=== PATIENT | female | born 1940 | race Caucasian/White ===

== ENCOUNTER 2020-02-25 07:25 | Day surgery (SDC) | payer OTHER ==
[2020-02-25] MEDS: Ringers Lactate 1,000 ML IV ONE ×2 (08:00→08:30)
[2020-02-25] MEDS ORDERED: MIDAZOLAM HCL 2 MG/2 ML INJ ONE (08:09)
[2020-02-25] MEDS ORDERED: LIDOCAINE 2% MPF 5 ML VIAL ONE (08:09)
[2020-02-25] MEDS ORDERED: FENTANYL CITR 100 MCG/2 ML ONE (08:09)
[2020-02-25] MEDS ORDERED: propofoL 200 MG/20 ML VIAL IV ONE (08:09)
[2020-02-25] MEDS ORDERED: LIDOCAINE 1% MPF 30 ML VIAL ONE (08:26)
[2020-02-25] MEDS ORDERED: EPHEDRINE SULF 50 MG/ML VIAL ONE (09:00)
--- NOTE | 2020-02-25 10:00 | P.OP ---
Preoperative diagnosis: Vasculitis Postoperative diagnosis: Vasculitis Primary procedure: RIGHT Temporal Artery Biopsy Anesthesia: GETA + Local Estimated blood loss: <2cc Specimen: Temporal Artery Findings: Oblique Course of Temporal Artery Complications: None Transferred to: Recovery Room Condition: Good
[2020-02-25] MEDS ORDERED: KETOROLAC 30 MG/ML INJ ONE (10:09)
[2020-02-25] MEDS: MORPHINE 4 MG/ML SYR ONE ×2 (10:25→10:30)
[2020-02-25] MEDS ORDERED: ONDANSETRON 4 MG/2 ML VIAL ONE (10:28)
--- NOTE | 2020-02-25 10:46 | OP ---
Date of Procedure: 02/25/2020 Surgeon: Yovany Mon MD, Preoperative Diagnosis: Possible vasculitis and ophthalmic changes. Postoperative Diagnosis: Possible vasculitis and ophthalmic changes. Procedure Performed: Right temporal artery biopsy. Anesthesia: General endotracheal plus local with 0.5% Marcaine without epinephrine. Estimated Blood Loss: Less than 2 mL. Specimen: Temporal artery. Findings: Oblique course of temporal artery. Complications: None. Disposition: Transferred to the recovery room in good condition. Procedure In Detail: After informed was obtained, patient was brought to the operating room, prepped and draped in the usual sterile fashion. After adequate anesthesia achieved using Doppler localizat ion, the temporal artery on the right temporoparietal region was identified. Skin marking was perfor med. The area was appropriately anesthetized with 0.5% Marcaine without epinephrine and a 15 blade w as used to dissect down through skin and subcutaneous tissue. Dissection continued down through the temporoparietal fascia using Doppler guidance to identify the temporal artery. It had a somewhat obl ique course with a branch diving deep into the deeper layers. Dissection continued down circumferent ially to expose approximately 3 cm of the temporal artery. Both proximal and distal control were obt ained at this point and tied off with 3-0 silk sutures and the specimen was cut. However, there was a slight retraction to it and as such an additional margin was taken of proximal temporal artery and this was sent off for pathologic examination. Good hemostasis was achieved, there was minimal bleedi ng from the small superficial branches including the deep branch, which had some minimal bleeding and was dissected down to achieve control with simple grasp and electrocautery. At this point, the area was irrigated copiously multiple times until completely clear. The temporoparietal fascia was reapp roximated using an interrupted 4-0 Vicryl suture and the deep dermal layer was then reapproximated us ing an additional 4-0 Vicryl suture. Then the skin was closed with a 4-0 Monocryl in a running fashi on. Dermabond placed over top. The patient tolerated the procedure well without evidence of complic ation, transferred to PACU in good condition. All counts were correct at the end of the case. LURDES/SHANIQUAL Voice ID: [id number] Report ID: [id number]
[2020-02-25] MEDS ORDERED: HYDROCODONE/APAP 5/325 MG TAB ONE (10:58)
[2020-02-25 11:58] VITALS: TEMP 96.8; O2SAT 95
[2020-02-25 11:59] VITALS: BP 142/54
== END 2020-02-25 11:45 | disposition home or self-care (01) ==
LOC: OR 07:25
PROVIDERS: ATTEND Surgery
PROC: 03BS0ZX Excision of Right Temporal Artery, Open Approach, Diagnostic (ICD-10-PCS; principal; 2020-02-25 08:30)
DX: H53.9 Unspecified visual disturbance (principal); I10 Essential (primary) hypertension; J45.909 Unspecified asthma, uncomplicated; R01.1 Cardiac murmur, unspecified; M10.9 Gout, unspecified; E66.9 Obesity, unspecified; Z68.37 Body mass index [BMI] 37.0-37.9, adult; F41.9 Anxiety disorder, unspecified; F32.9 Major depressive disorder, single episode, unspecified; Z88.3 Allergy status to other anti-infective agents; Z88.8 Allergy status to other drugs, medicaments and biological substances; Z88.6 Allergy status to analgesic agent; Z88.0 Allergy status to penicillin; Z85.3 Personal history of malignant neoplasm of breast; Z90.12 Acquired absence of left breast and nipple; Z86.73 Personal history of transient ischemic attack (TIA), and cerebral infarction without residual deficits; Z82.49 Family history of ischemic heart disease and other diseases of the circulatory system
CPT/HCPCS: 88305; 37609; J2704; J2250; J3010; J7120; J2405

== ENCOUNTER 2022-06-23 08:23 | Day surgery (SDC) | payer OTHER ==
[2022-06-23] MEDS ORDERED: Ringers Lactate 1,000 ML IV ONE (09:03)
[2022-06-23 09:27] VITALS: O2SAT 100
[2022-06-23] MEDS ORDERED: LIDOCAINE 1% MPF 2 ML AMPULE ONE (11:51)
[2022-06-23] MEDS ORDERED: propofoL 200 MG/20 ML VIAL IV ONE (11:51)
--- NOTE | 2022-06-23 12:49 | ENDO RPT ---
[address], [address] EGD PROCEDURE REPORT EXAM DATE: 06/23/2022 PATIENT NAME: Shannan Valenzuela MR#: [id number] BIRTHDATE: 1940 ATTENDING: Yovany Mon DR STATUS: outpatient INDUSTRIAL ELECTRICAL TECHNICIAN: Chantal Stephens RN and Ernesto Henson [facility] INDICATIONS: The patient is a 82 yr old Female here for an EGD due to anemia and Black stool PROCEDURE PERFORMED: EGD with biopsy for H. pylori MEDICATIONS: Per Anesthesia. TOPICAL ANESTHETIC: none CONSENT: The patient understands the risks and benefits of the procedure and understands that these risks include, but are not limited to: sedation, allergic reaction, infection, perforation and/or bleeding. Alternative means of evaluation and treatment include, among others: physical exam, x-rays, and/or surgical intervention. The patient elects to proceed with this endoscopic procedure. DESCRIPTION OF PROCEDURE: During intra-op preparation period all mechanical medical equipment was checked for proper function. Hand hygiene and appropriate measures for infection prevention was taken. Procedure, possible complications, and alternatives including but not limited to the possibility of bleeding, perforation, tear, infection, sepsis, need for surgery, need for blood transfusion, and anesthesia related complications were explained to the patient. After the risks, benefits and alternatives of the procedure were thoroughly explained, Informed consent was verified, confirmed and timeout was successfully executed by the treatment team. The patient was placed in the left lateral position. The patient was anesthetized with topical anesthesia. Through the anesthetized oropharyngeal area, the scope was passed without any difficulty. The Pentax EG-[id number] ([id number]) endoscope was introduced through the mouth and advanced to the second portion of the duodenum. Retroflexed views revealed a small hiatal hernia. The gastroscope was then slowly withdrawn and removed. Severe gastritis was found in the fundus. A biopsy of the GEJ was obtained to rule out Roger's. A biopsy for H. pylori was taken. With standard forceps, a biopsy was obtained and sent to pathology. Severe gastritis was found in the body and the antrum of the stomach. A biopsy of the GEJ was obtained to rule out Roger's. A biopsy for H. pylori was taken. With standard forceps, a biopsy was obtained and sent to pathology. A small hiatal hernia was found in the gastroesophageal junction. ADVERSE EVENTS: There were no complications. IMPRESSIONS: 1. Severe gastritis was found in the fundus 2. Severe gastritis was found in the body and the antrum of the stomach 3. A small hiatal hernia was found in the gastroesophageal junction RECOMMENDATIONS: 1. acid suppression therapy 2. anti-reflux regimen 3. await biopsy results 4. avoid NSAIDS 5. follow-up of helicobacter pylori status, treat if indicated REPEAT EXAM: Yovany Mon DR eSigned: Yovany Mon DR 06/23/2022 12:49 PM cc: CPT CODES: ICD9 CODES: PATIENT NAME: Shannan Valenzuela MR#: [id number]
--- NOTE | 2022-06-23 12:51 | ENDO RPT ---
[address], [address] COLONOSCOPY PROCEDURE REPORT EXAM DATE: 06/23/2022 PATIENT NAME: Shannan Valenzuela MR #: [id number] BIRTHDATE: 1940 ATTENDING: Yovany Mon DR STATUS: outpatient FRONT COUNTER ATTENDANT: Ernesto Spencer and Chantal Stephens RN INDICATIONS: The patient is a 82 yr old Female here for a colonoscopy due to anemia and dark tarry stool PROCEDURE PERFORMED: Screening Colonoscopy and Colonoscopy MEDICATIONS: Per Anesthesia. ESTIMATED BLOOD LOSS: None CONSENT: The patient understands the risks and benefits of the procedure and understands that these risks include, but are not limited to: sedation, allergic reaction, infection, perforation and/or bleeding. Alternative means of evaluation and treatment include, among others: physical exam, x-rays, and/or surgical intervention. The patient elects to proceed with this endoscopic procedure. DESCRIPTION OF PROCEDURE: During intra-op preparation period all mechanical medical equipment was checked for proper function. Hand hygiene and appropriate measures for infection prevention was taken. Procedure, possible complications, alternatives including, but not limited to possibility of bleeding, perforation, tear, infection, sepsis, need for surgery, need for blood transfusion, were explained to the patient. After the risks, benefits and alternatives of the procedure were thoroughly explained, Informed consent was verified, confirmed and timeout was successfully executed by the treatment team. The patient was placed in the left lateral position. A digital rectal exam was performed and revealed internal hemorrhoids. After appropriate level of anesthesia, the scope was passed. The [id number] ([id number]) endoscope was introduced through the anus and advanced to the cecum, which was identified by both the appendix and ileocecal valve. The quality of the prep was good. The instrument was then slowly withdrawn as the colon was fully examined. Scope withdrawal time was 10 minutes. COLON FINDINGS: There was moderate diverticulosis noted throughout the entire examined colon and in the sigmoid colon with associated colonic spasm and muscular hypertrophy. No bleeding was noted from the diverticulosis. Retroflexed views revealed no abnormalities. The scope was then completely withdrawn from the patient and the procedure terminated. ADVERSE EVENTS: There were no complications. IMPRESSIONS: There was moderate diverticulosis noted throughout the entire examined colon and in the sigmoid colon RECOMMENDATIONS: 1. avoid NSAIDS for 2 weeks 2. follow-up: office 2 week(s) 3. Monitor for any evidence of rectal bleeding. 4. hemorrhoidal hygiene 5. increase dietary water 6. low fiber / diverticular diet RECALL: Return in 5 year(s) for Colonoscopy. Yovany Mon DR eSigned: Yovany Mon DR 06/23/2022 12:51 PM cc: CPT CODES: ICD9 CODES: PATIENT NAME: Shannan Valenzuela MR#: [id number]
[2022-06-23 13:44] VITALS: TEMP 97.6
[2022-06-23 13:47] VITALS: BP 108/72
== END 2022-06-23 13:30 | disposition home or self-care (01) ==
LOC: DS 08:23
PROVIDERS: ATTEND Surgery
PROC: 0DB68ZX Excision of Stomach, Via Natural or Artificial Opening Endoscopic, Diagnostic (ICD-10-PCS; 2022-06-23)
PROC: 0DJD8ZZ Inspection of Lower Intestinal Tract, Via Natural or Artificial Opening Endoscopic (ICD-10-PCS; principal; 2022-06-23 11:00)
PROC: 0DB98ZX Excision of Duodenum, Via Natural or Artificial Opening Endoscopic, Diagnostic (ICD-10-PCS; 2022-06-23 11:00)
DX: A04.8 Other specified bacterial intestinal infections (principal); K92.1 Melena; G45.9 Transient cerebral ischemic attack, unspecified; Z86.73 Personal history of transient ischemic attack (TIA), and cerebral infarction without residual deficits; D64.9 Anemia, unspecified; K57.30 Diverticulosis of large intestine without perforation or abscess without bleeding; K44.9 Diaphragmatic hernia without obstruction or gangrene; K29.50 Unspecified chronic gastritis without bleeding
CPT/HCPCS: 88312; 88305; 45378; 43239; J2704; J7120

== ENCOUNTER 2024-07-11 07:22 | Inpatient (IN) | payer OTHER ==
[2024-07-11 12:22] VITALS: BMI 34.6
[2024-07-11] MEDS ORDERED: ZOLPIDEM TARTRATE 5 MG TABLET PO PRN (12:48)
[2024-07-11] MEDS ORDERED: ACETAMINOPHEN 500 MG TAB PO PRN (13:07)
[2024-07-11] MEDS ORDERED: IPRATROPIUM BROM 0.5MG/2.5ML NEB PRN ×2 (13:08→15:54)
[2024-07-11] MEDS ORDERED: ALBUTEROL 2.5 MG/3 ML NEB SOL NEB PRN ×2 (13:11→15:54)
[2024-07-11] MEDS ORDERED: ONDANSETRON 4 MG (ODT) TAB PO PRN (13:13)
[2024-07-11] MEDS ORDERED: MAGNES/ALUMIN/SIMET 30ML UCUP PO PRN (13:14)
[2024-07-11] MEDS ORDERED: MELATONIN 3 MG TABLET PO PRN (13:27)
[2024-07-11] MEDS ORDERED: ALBUTEROL 2.5 MG/3 ML NEB SOL NEB SCH (15:00)
[2024-07-11] MEDS ORDERED: NA CHLORIDE 0.9% 250 ML ONE (19:04)
[2024-07-11] MEDS: Meropenem 1,000 MG in NA CHLORIDE 0.9% 100 ML IV SCH (19:06)
[2024-07-11] MEDS ORDERED: APIXABAN 5 MG TABLET PO SCH (20:00)
[2024-07-11] MEDS: DOCUSATE NA 100 MG CAP PO SCH (20:19)
[2024-07-11] MEDS: FLECAINIDE 100 MG TAB PO SCH (20:19)
[2024-07-11] MEDS: APIXABAN 2.5 MG TABLET PO SCH (20:19)
[2024-07-11] MEDS: ATORVASTATIN 20 MG TAB PO SCH (20:31)
--- NOTE | 2024-07-11 21:08 | HP ---
Date of Admission: 07/11/2024 Time Of Service: 1 p.m. Chief Complaint: "I was weak, I needed to get stronger and had problems with breathing." History Of Present Illness: Ms. Valenzuela is an 84-year-old patient with hypertension, dyslipidemia, sta ge 4 kidney disease, atrial fibrillation, who presents to [facility] on 07/08 with urinary freq uency, swelling of her feet, decreased strength in the lower extremities over a week, and some shortn ess of breath. Her workup showed shortness of breath on exertion and she had acute on chronic renal failure, elevated troponins, and elevated BNP. Cardiology Service diagnosed with new onset CHF. How ever, these chest x-ray findings were negative. She did receive IV Lasix 20 mg daily monitoring with 1.5 L fluid restriction and Eliquis 2.5 mg twice daily for DVT prophylaxis. She did have urinary tr act infection and received Rocephin which is ongoing. Echocardiogram showing atrial fibrillation and [id number] myocardial infarction. In addition, she was diagnosed with diastolic CHF exacerbatio n and was evaluated by the Therapy Service for inpatient consideration. She also does have the young est son who is involved with her and helps her with showering and mobilization and activities of mik y living. The Therapy Service found that she required moderate to maximal assistance for sit to darwin d, maximum assistance to take few steps, and had some bilateral foot pain more on the right than on t he left with likely due to gout exacerbation, for which in the past she had been apparently on allopu rinol. She did have 2 falls at home in the last 6 months while ambulating with a cane. Due to her c ondition, which is related to CHF exacerbation, urinary tract infection, pain on the right leg, debil ity, she is now found to be appropriate candidate for aggressive inpatient rehabilitation for her to be able to return to her prior level of functioning and reduce her risk of rehospitalization. Admiss celsa to a lower level facility such as a residential may not necessarily result in her improving, but potentially worsening and reducing the risk of her going home and returning to independent living . Past Medical History: Left breast cancer, on oral chemotherapy, letrozole. 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 Allergies: METRONIDAZOLE AND PENICILLIN. X-ray/imaging: Chest x-ray on 07/08 shows no acute cardiopulmonary processes. She was evaluated and treated by the Renal Service prior to coming to the inpatient unit and the Renal Service determined that she has stabilized renal function and would continue monitoring, would taper down a weaning cour se of steroids which she was sent on and that is being done and follow the diuresis and daily weights and fluid management. Medications: Extra-strength Tylenol 500 mg every 4 hours as needed, Maalox 30 mg every 6 hours as ne eded, albuterol nebulizer 2.5 mg every 4 hours as needed, allopurinol 100 mg daily, Eliquis 2.5 mg tw ice daily, aspirin 81 mg daily, Lipitor 20 mg at bedtime, Colace 100 mg twice daily, flecainide 50 mg twice daily, Lasix 20 mg daily, ipratropium nebulizer 0.5 mg every 4 hours as needed, letrozole 2.5 mg daily, melatonin 3 mg at bedtime, meropenem 1 g every 12 hours for ESBL UTI, Lopressor 25 mg daily , Zofran 4 mg every 4 hours as needed, and she has a tapering course of prednisone from 40 mg daily d own to 30, 20, 10, and stopping. She also has Ultram 50 mg every 6 hours as needed. Family History: Noncontributory. Review of Systems: She reports pain in the right toe more than the left from gout and some mild fatigue, some difficulty with mild myalgias, arthralgias. Although she does have some issues of bowel movement, difficulty a nd mild issues of sleep, no other significant positives on the review of systems again. Family History: Noncontributory. Social History: No alcohol, tobacco, or drug use. She does live at home with her younger son whom s he says very helpful and will take care of her after she is discharged. Current Level Of Functioning: Supervision for eating, oral hygiene. Moderate assistance for toileti ng. Maximal assistance for showering. Moderate assistance for upper body dressing, maximal assistan ce for lower body dressing and donning and doffing footwear. For rolling eutc-lp-juhie and sit to ly ing and lying to sitting on the side of the bed, moderate assistance required. For sit to stand, max imum assistance. For transfer from bed to chair to toilet, moderate assistance required. For ambula tion 20 feet with a rolling walker, moderate assistance required. Physical Examination: Vital Signs: Blood pressure is 112/58, pulse 80, respiratory rate 18, temperature 97.6, oxygen satur ation 97%. General: Ms. Valenzuela is sitting in a chair in the gym doing therapy. HEENT: She is normocephalic, atraumatic. Sclerae anicteric. Oropharynx pink, moist. Neck: Supple. Chest: Clear. Heart: Currently regular. Abdomen: Soft. Extremities: Show no significant cyanosis or edema. Does have some swelling in the right big toe an d the lateral area where she likely has a gout flare up. In terms of her strength, she does have nicolás tral IV placed in the right arm medially and makes it difficult for her to exert full strength, but s he has no focal deficits on the left to right, at least 4+ out of 5 strength in all extremities proxi dann and distally. Sensation may be stocking-glove loss, reflexes depressed. Gait, she will ambula te with a rolling walker and with a gait belt and she requires contact guard to min assist as she is ambulating and she was able to do that with a rolling walker. Rehab And Medical Assessment And Plan: Ms. Valenzuela is admitted to the inpatient rehabilitation unit wi th impairment category 14, cardiac. Her impairment group code is 09, cardiac. Etiologic diagnosis, diastolic congestive heart failure exacerbation. Her comorbidities include decreased mobility, decre ased physical functioning, ESBL UTI, on meropenem, CHF as noted exacerbation, she has the left eye bl indness, hypertension, atrial fibrillation, prior craniotomy, and left breast cancer, on letrozole ch emotherapy, and gout flare up. Plan: 1.She will have physical, occupational, and if need be speech therapy for 3.5 hours, 5 of 7 days. 2.For the gout, allopurinol 100 mg daily for pain, Tylenol 50 mg every 4 hours as needed for indiges tion and gas, Maalox 30 mg every 6 hours as needed, albuterol nebulizer for shortness of breath, Eliq uis 2.5 mg twice daily for DVT prophylaxis, aspirin 81 mg daily for stroke risk reduction, Lipitor 20 mg at bedtime for dyslipidemia, Colace 100 mg twice daily for stool softening, and for heart rhythm control, she has flecainide 50 mg twice daily, furosemide for fluid management at 20 mg daily, At[place] nt nebulizer for shortness of breath, melatonin for insomnia, and she has letrozole 2.5 mg daily for her breast cancer treatment. Again, meropenem 1 g every 12 hours for ESBL UTI, melatonin for insomni a, Lopressor for heart rate control, prednisone on a tapering course, and tramadol 50 mg daily for pa in. Comorbidities That Are Impacting Rehabilitation: Currently, she is receiving IV antibiotics and will have to watch for the potential for yeast overgrowth and diarrhea such as a potential for C. diff th at will be looked for. In addition, her risk of stroke is there. She does have DVT treatment and pr ophylaxis along with aspirin for reducing risk of cardioembolic stroke. Risk of falling, she had 2 f alls prior to coming to hospital. Fall precautions adhered to at all times. Gait belt with the walk er and a chair in tow with the therapist to help reduce risk of falling and injury. In addition, sofia st x-ray will be done to evaluate if there is any evidence for pneumonia. She has blood work to rule out the presence of a systemic infection and as she is diuresed to prevent over diuresis, we will alvarez ve electrolytes including following creatinine and BUN and we will discuss with her son as he will al so be present to observe how she does with therapy to help serve her in the best way when she goes ho me. Rehab Specific Plan: Ms. Valenzuela will have physical and occupational therapy, if need be speech therap y total of 3.5 hours, 5 of 7 days to improve her ability to transfer from bed to chair to a walker to a wheelchair, on and off the toilet, in and out of the tub, perform toileting and showering. Also t o allow her the ability to perform long distances with a rolling walker 250 feet and up and down 10 s teps with bilateral handrails and propel a wheelchair 250 feet. Also speech as needed for safe decis ion making. To follow the instructions of therapists and to help her with short-term memory and comm unication in terms of language, comprehension, expression as well. Ms. Valenzuela has a good understanding of the process of admission to the inpatient rehabilitation facili and how she will benefit from physical, occupational, and if need be speech therapy. She will hav e 24 hours a day, 7 days a week skilled rehabilitation and nursing, daily physician evaluation and [facility], and social service evaluation and management for discharge planning, home equipment, and co ntinuing therapy and follow up with her primary care physician. If need be, additional help from the Hospitalist Service and Cardiology Service will be sought. Barriers To Discharge: She has had some progressive weakness that is now improved. She has CHF whic h led to weakness which is improving, but that can recur and she may require an extended stay. Fall precautions will be strongly adhered to. If need be, chair alarm, bed alarm will be in place if she shows some impulsivity. At this point, it is anticipated she will do well and be able to go home wit h her son to help. Length Of Stay: About 10 days. Disposition: Home with continued therapy by home health and help of her son. Prognosis: Good. Code Status: Full code. Rehab Specific Goals: 1.Become independent with upper and lower body dressing and donning and doffing footwear. 2.Independently ambulate 250 feet with a rolling walker. 3.Independently propel a wheelchair 250 feet. 4.Independently go up and down 10 steps with bilateral handrails. 5.Independently perform all activities of daily living. 6.Independently perform all cognitive functioning for safety awareness. The above goals were reviewed with Ms. Valenzuela and she is in agreement. By signing this document, I acknowledge I personally performed a full physical examination on Ms. Luis Antonio cobos no later than 24 hours after her admission to the inpatient rehabilitation facility and determined that she is able to tolerate the above course of treatment at an intensive level for reasonable lanette od of time. A detailed individualized plan of care for her will be completed by hospital day 4 based on the preadmission screen, history and phy sical, and therapy evaluations. MANE Voice ID: [id number]
[2024-07-12] MEDS: METOPROLOL TAR 25 MG TAB PO SCH (05:00)
--- NOTE | 2024-07-12 07:18 | RAD REPORT ---
EXAM: Chest Single View HISTORY: hx of chf, picc/midline placement verification COMPARISON: None. FINDINGS: LUNGS/PLEURA: Retrocardiac airspace disease. MEDIASTINUM: The mediastinal silhouette is within normal limits. CARDIAC: The cardiac silhouette is within normal limits. UPPER ABDOMEN: No significant abnormality. BONES: No acute fracture. LINES/TUBES/OTHER: A catheter is present at the right upper extremity which terminates at the level o f the right glenoid. IMPRESSION: 1. Retrocardiac airspace disease possibly indicating pneumonia. The patient has a history of left anibal ast radiation in 2015. No more recent priors are available for comparison. 2. Vascular catheter with tip overlying the right glenoid. If this is a midline venous catheter, it m ay be in acceptable position. If this is a PICC, then the catheter will need to be replaced/advanced as the position is not central.
[2024-07-12] MEDS ORDERED: ASPIRIN EC 81 MG TAB PO SCH (08:00)
[2024-07-12] MEDS: FUROSEMIDE 20 MG TABLET PO SCH (09:08)
[2024-07-12] MEDS: predniSONE 20 MG TAB PO SCH (09:09)
[2024-07-12] MEDS: ASPIRIN 81 MG CHEWABLE TABLET PO SCH (09:10)
[2024-07-12] MEDS: LETROZOLE 2.5 MG TAB PO SCH (09:10)
[2024-07-12] MEDS: allopurinoL 100 MG TAB PO SCH (09:10)
[2024-07-12 11:51] LABS: Specific Gravity 1.016 (1.005-1.030); Sqamous Epithelial None Seen /HPF (None Seen); Transitional Epithelial <5 /HPF (None Seen); Urine Bacteria None Seen /HPF (<20); Urine Bilirubin NEGATIVE (Negative); Urine Blood Negative (Negative); Urine Clarity Clear (Clear); Urine Color Light-Yellow (Yellow); Urine Culture Reflex Order REFLEXED; Urine Glucose NEGATIVE (Negative); Urine Ketones NEGATIVE (Negative); Urine Micro Reflex YN NO BILL MICROSCOPIC; Urine Nitrite NEGATIVE (Negative); Urine Protein NEGATIVE (Negative); Urine RBC <5 /HPF (None Seen); Urine Urobilinogen Normal (Normal)
--- NOTE | 2024-07-12 15:10 | PN ---
Date of Progress Note: 07/12/2024 Time Of Service: 1:15 p.m. Subjective: Ms. Valenzuela is actually ambulating in the bonner. She did 250 feet and was in the dining ro om with her 2 sons having Thanksgiving dinner. She was very worried about having blood draws because of the severe pain she says and she has a line that cannot be used for blood draws, but is used for antibiotics. She did agree that once a topical analgesic was rubbed over the area, she will allow bl ood draw to be done. Otherwise, in terms of objective, no fevers, chills, nausea, vomiting. Mild my algias and arthralgias. No rash, headache, weight change. No psychiatric issues aside from mild dep ression and she has actually started on something for that. Cymbalta 30 mg at night. Physical Examination: Vital Signs: Blood pressure 143/62, pulse 74, respiratory rate 18, temperature 97, oxygen saturation 98%. Weight 195 pounds, height 5 feet 3 inches, BMI 34.6. Again, Ms. Valenzuela is sitting in a chair n ow in the dining room. HEENT: She is normocephalic, atraumatic. Sclerae are anicteric. Oropharynx pink and moist. She do es have the peripheral arm lying in place for which she is receiving antibiotics. Otherwise, she is making some fair progress in terms of her ability to oxygenate, mobilize, and pain is managed. She i s eating well, sleeping well as well. In terms of the rest of her examination, she has no focal neur ological deficits. Laboratory Studies: Blood work is pending, as noted she did refuse and she will have another attempt made to get blood work. X-ray/imaging: There was a chest x-ray earlier today for placement, evaluation for her catheter and it is noted that it is a vascular catheter. The area is okay, but for a PICC line it would not be an d since it is a vascular catheter and not a PICC line, the imaging looks okay. Possibility of pneumo hoda, for this she will have incentive spirometry. Vital signs are stable and she had been followed f or blood work and she is already on antibiotics as noted. Progress Made With Physical And Occupational Therapy: With physical therapy, she is able to ambulate 50 feet, 60 feet, and 40 feet with minimum assistance using a single cane, single prong. Saturation was 98%. She was up and down 5 steps with minimum assistance and bilateral handrails. Alehmn-zf-mn t transfer done with minimum assistance, bdx-ul-oqink transfers with contact guard assistance, stand- to-pivot transfers with contact guard assistance. With her occupational therapy, toileting and showe r transfer, contact guard assistance. Simulated toileting tasks. She noted she did not need to go a t that time. She was brought to the shower. Able to wash all body parts with some difficulty proper cleaning, wiping her buttocks after due to pain in the arm. Upper body dressing and lower body dres sing done with yjlsgigufpp-ab-frhteqy assistance. Assessment: Ms. Valenzuela is an 84-year-old patient in rehabilitation unit with diastolic congestive hea rt failure exacerbation for which she is recovering and doing very well. She has a pneumonia and is actually being treated already with antibiotics. She has comorbid extended-spectrum beta-lactamase u rinary tract infection with meropenem, decreased mobility, decreased physical functioning, left eye b lindness, atrial fibrillation, prior craniotomy, left breast cancer on letrozole chemotherapy and she has allopurinol for a flare-up of gout. Plan: She will continue with physical and occupational therapy 3 hours a day, 5 of 7 days. Continue with all comorbid condition medications. These have been noted and she has again agreed to allow fo r blood draw, and we will continue antibiotics which are part of her treatment. Per protocol, she is receiving Tylenol, Maalox, albuterol nebulizer, allopurinol, Eliquis, aspirin, a torvastatin, Colace, and now Cymbalta started for depression. She has Lasix and letrozole for her br east cancer, melatonin, she has meropenem which is 1 g every 12 hours, and prednisone on board. She has tramadol for pain as well, continue. LB/SHANIQUAL Voice ID: [id number] Report ID: [id number]
[2024-07-12] MEDS: LIDOCAINE HCL JELLY 2% 6 ML SYRINGE TOP ONE (15:18)
[2024-07-12] MEDS: NA CHLORIDE 0.9% 1,000 ML IV SCH (16:55)
[2024-07-12] MEDS: DULOXETINE 30 MG CAP PO SCH (19:18)
[2024-07-13] MEDS: TRAMADOL HCL 50 MG TAB PO PRN (00:29)
--- NOTE | 2024-07-13 09:13 | RAD REPORT ---
Exam:Knee Left 2 View HISTORY: Left knee pain FINDINGS: No fracture or dislocation seen Mild medial joint space narrowing. If the patient's pain persists follow-up x-ray would be recommended
[2024-07-13] MEDS: LIDOCAINE 4% PATCH TOP SCH (09:20)
--- NOTE | 2024-07-13 13:30 | P.RH.PN ---
Estimated Length of Stay: 9 Expected Discharge Date: 07/17/24 Discharge Disposition Plan: Home Family Support: Yes Staff Occupational Therapist Goal: Mobility, Transfers, Self Care Vital Signs: Last Vital Signs Temp 96.9 F 07/13/24 08:00 Pulse 75 07/13/24 09:22 Resp 16 07/13/24 08:00 BP 137/82 07/13/24 09:22 Pulse Ox 95 07/13/24 08:00 Laboratory: Laboratory Last Values WBC Cancelled 07/12/24 05:00 RBC Cancelled 07/12/24 05:00 Hgb Cancelled 07/12/24 05:00 Hct Cancelled 07/12/24 05:00 MCV Cancelled 07/12/24 05:00 MCH Cancelled 07/12/24 05:00 MCHC Cancelled 07/12/24 05:00 RDW Cancelled 07/12/24 05:00 Plt Count Cancelled 07/12/24 05:00 MPV Cancelled 07/12/24 05:00 Neutrophils % Cancelled 07/12/24 05:00 Lymphocytes % Cancelled 07/12/24 05:00 Monocytes % Cancelled 07/12/24 05:00 Eosinophils % Cancelled 07/12/24 05:00 Basophils % Cancelled 07/12/24 05:00 Absolute Neutrophils Cancelled 07/12/24 05:00 Absolute Lymphocytes Cancelled 07/12/24 05:00 Absolute Monocytes Cancelled 07/12/24 05:00 Absolute Eosinophils Cancelled 07/12/24 05:00 Absolute Basophils Cancelled 07/12/24 05:00 Diff Path Review Cancelled 07/12/24 05:00 Sodium Cancelled 07/12/24 05:00 Potassium Cancelled 07/12/24 05:00 Chloride Cancelled 07/12/24 05:00 Carbon Dioxide Cancelled 07/12/24 05:00 Anion Gap Cancelled 07/12/24 05:00 BUN Cancelled 07/12/24 05:00 Creatinine Cancelled 07/12/24 05:00 Est GFR (CKD-EPI) Cancelled 07/12/24 05:00 Glucose Cancelled 07/12/24 05:00 Uric Acid Cancelled 07/12/24 05:00 Calcium Cancelled 07/12/24 05:00 Magnesium Cancelled 07/12/24 05:00 NT-Pro-B Natriuret Pep Cancelled 07/12/24 05:00 Albumin Cancelled 07/12/24 05:00 Prealbumin Cancelled 07/12/24 05:00 Urine Color Light-yellow (Yellow) 07/12/24 10:45 Urine Clarity Clear (Clear) 07/12/24 10:45 Urine pH 6.0 (5.0-7.0) 07/12/24 10:45 Ur Specific Jackson 1.016 (1.005-1.030) 07/12/24 10:45 Glucose (UA)(Auto) Negative (Negative) 07/12/24 10:45 Urine Ketones Negative (Negative) 07/12/24 10:45 Urine Blood Negative (Negative) 07/12/24 10:45 Urine Nitrite Negative (Negative) 07/12/24 10:45 Urine Bilirubin Negative (Negative) 07/12/24 10:45 Urine Urobilinogen Normal (Normal) 07/12/24 10:45 Ur Leukocyte Esterase 75 Heath/uL (Negative) H 07/12/24 10:45 Urine RBC <5 /HPF (None Seen) 07/12/24 10:45 Urine WBC 10-20 /HPF (<5) H 07/12/24 10:45 Ur Squamous Epith Cells None seen /HPF (None Seen) 07/12/24 10:45 Ur Transition Epith Cell <5 /HPF (None Seen) 07/12/24 10:45 Urine Bacteria None seen /HPF (<20) 07/12/24 10:45 Urine Culture Reflexed Reflexed 07/12/24 10:45 Urine Total Protein Negative (Negative) 07/12/24 10:45 Weight: 196 lb 6.4 oz Closed Surgical Incision Present: No Negative Pressure Wound Therapy Present: No Physician Update: Labs reviewed and stable. Chest x-ray suggests pneumonia on meropenum for ESBL UTI. Last BM was 2 days ago. Min assist for transfers. WC 250' with SBA. BIMS 13, SLUMS 16. Self-limiting barrier. Summary: Patient's care plan and long term care pharmacist goals have been reviewed and revised as necessary. Please see the Rehabilitation Signature page for all necessary signatures.
[2024-07-13 20:37] LABS: Absolute Lymphocytes (CBC) 0.8 K/uL (0.7-4.9); Absolute Monocytes 0.4 K/uL (0.1-1.3); Absolute Neutrophil 9.6 K/uL (1.8-8.0); Basophils % 0.3 % (0-1.3); Eosinophils % 0.1 % (0-4.4); Hemoglobin 9.6 g/dL (12.0-15.0); Lymphocytes % 7.6 % (15.3-44.8); MCH 28.1 pg (27.0-35.0); MCHC 32.2 g/dL (32.0-36.0); MCV 87.3 fL (80-100); MPV 8.3 fL (7.6-11.3); Monocytes % 3.9 % (3.3-12.3); Neutrophils % 88.1 % (41.7-73.7); Nucleated Red Blood Cells % 0.1 % (0-0); Platelets 300 thou/uL (152-406); RBC Red Blood Cell Count 3.43 M/uL (3.86-4.86); Red Cell Distribution Width 16.4 % (12.1-15.2)
[2024-07-13 21:02] LABS: Albumin 2.5 g/dL (3.4-5.0); Uric Acid 10.8 mg/dL (2.6-6.0)
[2024-07-13 21:15] LABS: Prealbumin 15.7 mg/dL (20-40)
[2024-07-14] MEDS: predniSONE 10 MG TAB PO SCH (09:23)
[2024-07-14] MEDS: CRANBERRY FRUIT EXTRACT 425 MG CAPSULE PO SCH (14:17)
[2024-07-16] MEDS: predniSONE 20 MG TAB PO SCH (08:35)
--- NOTE | 2024-07-16 22:06 | PN ---
Date of Progress Note: 07/16/2024 Time Of Service: 1:15 p.m. Subjective: Ms. Valenzuela is in the gym doing therapy. She is so far happy about being able to go home in the morning. Her 2 sons also were involved in discussion about how she should proceed at home, th at she should use incentive spirometry, have daily weights, check for her pitting edema, to look for worsening or potential worsening of congestive heart failure. She is also to follow up with her card iologist. Objective: No fevers, chills, nausea, vomiting, myalgias, arthralgias, rash, headache, and no other complaints there. She is happy to get the midline removed from the right arm. Physical Examination: Vital Signs: Blood pressure 138/67, pulse 66, respiratory rate 18, temperature 98.2, oxygen saturati on 94%. General: Again, Ms. Valenzuela is resting in a chair in the gym. HEENT: She is normocephalic, atraumatic. Sclerae anicteric. Oropharynx pink and moist. Neck: Supple. Chest: Clear. Laboratory Studies: No new laboratory studies. Procalcitonin is less than 0.05. X-ray/imaging: She had a knee x-ray done on 07/13/2024, did show some mild medial joint space narrow ing. No other significant findings identified. Progress Made With Physical And Occupational Therapy: Today with occupational therapy, independent w ith bed mobility, bed to wheelchair transfer done with zdbat-yi-edizq with independence. Ambulated o n the hallway with independence. Tolerated 10 minutes of seated arm bike and minimum resistance exer cises. Also, standby assistance for showering, while washing and drying buttocks, perineal area, ind ependent with upper body dressing, moderate assistance for lower body dressing to help spread the fee t into her underwear. With her physical therapy, ambulated 150 feet independently with a single pron g cane, completed wheelchair mobilization 150 feet independently, up and down 5 steps with contact gu liane assistance. Vpjwfo-tu-fls done independently, completed multiple ghn-vt-mvzar transfers and cont act guard with dgwkb-lt-uoigj transfers independently. Simulated car transfer with contact guard ass istance. With speech, improved her BIMS score from 13 to 15 which is a full score and SLUMS score fr om 16 to 20, did indicate some ctbn-yk-jqrlznaj cognitive impairment still present. Assessment And Plan: Ms. Valenzuela is an 84-year-old patient in the rehabilitation unit with diastolic C HF dysfunction, does have possibility of pneumonia on a chest x-ray. She is on antibiotics which now will be levofloxacin 750 mg every 48 hours to complete 7 days. She is to have her IV, last IV antib iotic done today prior to discharge. She has some decrease in mobility, decrease in physical functio manuel which is improving, hypertension, stroke risk, dyslipidemia, depression, insomnia, and elevated blood sugars with steroid on board. She will have that dosage cut back to 5 mg a day, initially it w as 20, then 10 and 5 mg daily, and she will follow up with primary care physician for further adjustm ents. At this point, continue with physical, occupational, and speech therapy until discharge in the morning. She will have followup with cardiologists and her primary care physician. In addition, sh e will continue with physical therapy and occupational therapy via Home Health. If possible, also sp eech therapy to continue following her discharge. Family was instructed on the importance of daily w eights, checking for edema in the lower extremities, using incentive spirometry on a regular basis to minimize risk of CHF exacerbation. Also, she has cranberry pills for reducing risk of urinary tract infection and moderate hydration. We will minimize salt intake. LB/MODL Voice ID: [id number] Report ID: [id number]
[2024-07-17 06:52] VITALS: BP 125/61; TEMP 97
[2024-07-17] MEDS: levoFLOXacin 750 MG TAB PO SCH (06:55)
[2024-07-17] MEDS: APIXABAN 2.5 MG TABLET PO SCH (07:38)
[2024-07-18] MEDS ORDERED: predniSONE 10 MG TAB PO SCH (08:00)
== END 2024-07-17 10:50 | disposition home health service (06) | DRG 291 ==
LOC: 5TH 12:00
PROVIDERS: ADMIT Psychiatry & Neurology Neurology with Special Qualifications in Child Neurology; ATTEND Psychiatry & Neurology Neurology with Special Qualifications in Child Neurology
DX: I11.0 Hypertensive heart disease with heart failure (principal); I50.33 Acute on chronic diastolic (congestive) heart failure; N39.0 Urinary tract infection, site not specified; H54.62 Unqualified visual loss, left eye, normal vision right eye; I48.91 Unspecified atrial fibrillation; C50.912 Malignant neoplasm of unspecified site of left female breast; M10.9 Gout, unspecified
CPT/HCPCS: 36415; 71045; 80048; 81001; 82040; 83735; 83880; 84134; 84145; 84550; 85025; 87086; 87088; 92523; 97110; 97116; 97129; 97162; 97165; 97530; 97542; J2003; J2185; J7030; J7050; J7512